=== PATIENT | male | born 1945 | race African-American/Black ===

== ENCOUNTER 2018-12-19 17:45 | Emergency (ER) | payer OTHER ==
[~2018-12-19] VITALS: Ht 182.9 cm; Wt 104.3 kg
[2018-12-19 19:45] LABS: BASOPHILS % 0.5 % (0.0-1.0); EOSINOPHILS # (AUTO) 0.1 (0.0-0.4); EOSINOPHILS % 1.6 % (0.0-6.0); HEMOGLOBIN 12.2 g/dL (14.0-18.0); LYMPHOCYTES # (AUTO) 1.5 (1.0-3.2); LYMPHOCYTES % 27.2 % (18.0-39.1); MEAN CORPUSCULAR HEMOGLOBIN 26.8 pg (28-32); MEAN CORPUSCULAR HGB CONC 32.1 g/dL (31-35); MEAN CORPUSCULAR VOLUME 83.3 fL (81-99); MONOCYTES # (AUTO) 0.6 (0.2-0.8); MONOCYTES % 10.8 % (4.4-11.3); NEUTROPHILS # (AUTO) 3.3 (2.1-6.9); NEUTROPHILS % 59.7 % (38.7-80.0); PLATELET COUNT 193 x10e3/uL (140-360); RED BLOOD COUNT 4.56 x10e6/uL (4.3-5.7); RED CELL DISTRIBUTION WIDTH 19.3 % (11.7-14.4)
[2018-12-19] MEDS ORDERED: FUROSEMIDE INJ 10 MG/ML 4 ML VIAL IV ONE (19:45)
[2018-12-19 19:56] LABS: ALANINE AMINOTRANSFERASE 19 IU/L (0-55); ALBUMIN 3.5 g/dL (3.5-5.0); ALKALINE PHOSPHATASE 61 IU/L (40-150); ANION GAP 12.1 mmol/L (8-16); BLOOD UREA NITROGEN 19 mg/dL (7-26); BUN/CREATININE RATIO 15 (6-25); CALCIUM 9.3 mg/dL (8.4-10.2); CARBON DIOXIDE 24 mmol/L (22-29); CHLORIDE 108 mmol/L (98-107); CREATINE KINASE 59 IU/L (30-200); CREATININE, SERUM 1.23 mg/dL (0.72-1.25); EST GLOMERULAR FILTRATION RATE > 60 ML/MIN (60-); GLUCOSE 108 mg/dL (74-118); POTASSIUM 4.1 mmol/L (3.5-5.1); SODIUM 140 mmol/L (136-145)
--- NOTE | 2018-12-19 20:12 | Diagnostic Imaging Report ---
EXAMINATION: CHEST SINGLE (PORTABLE) INDICATION: ^sob ^[id number] ^[id number] COMPARISON: None FINDINGS: AP view TUBES and LINES: None. LUNGS: Lungs are well inflated. Bilateral interstitial edema. No lobar consolidations. PLEURA: Small right pleural effusion. No pneumothorax. HEART AND MEDIASTINUM: Marked enlargement of the cardiac silhouette. BONES AND SOFT TISSUES: Intact median sternotomy wires. No acute osseous lesion. Soft tissues are unremarkable. UPPER ABDOMEN: No free air under the diaphragm. IMPRESSION: Bilateral interstitial edema with associated small right pleural effusion. Signed by: Dr. Zo Villavicencio M.D. on 12/19/2018 8:09 PM
[2018-12-19] MEDS ORDERED: LASIX40 MG PO (21:00)
--- NOTE | 2018-12-19 21:00 | NUR ---
PT AMBULATORY TO RESTROOM, STATES TO BE FEELING BETTER.
[2018-12-19 21:54] VITALS: BP 124/94
== END 2018-12-19 21:40 | disposition home or self-care (01) ==
LOC: ER 17:45
DX: R06.09 Other forms of dyspnea (principal); R60.9 Edema, unspecified
CPT/HCPCS: 36415; 71045; 80053; 82550; 82553; 83880; 84484; 85025; 93005; 99284; J1940

== ENCOUNTER 2022-11-17 17:06 | Inpatient (IN) | payer OTHER ==
[~2022-11-17] VITALS: Ht 182.9 cm; Wt 104.3 kg
[~2022-11-17 17:06] MED LIST: LASIX40 MG PO
[2022-11-17] MEDS ORDERED: SODIUM CHLORIDE 0.9% 1000ML 1,000 ML IV STA (17:31)
[2022-11-17 18:29] LABS: BASOPHILS % 0.6 % (0.0-1.0); EOSINOPHILS # (AUTO) 0.1 (0.0-0.4); EOSINOPHILS % 0.9 % (0.0-6.0); HEMATOCRIT 37.2 % (38.2-49.6); LYMPHOCYTES # (AUTO) 1.2 (1.0-3.2); LYMPHOCYTES % 22.2 % (18.0-39.1); MEAN CORPUSCULAR HEMOGLOBIN 27.8 pg (28-32); MEAN CORPUSCULAR HGB CONC 32.3 g/dL (31-35); MEAN CORPUSCULAR VOLUME 86.3 fL (81-99); MONOCYTES # (AUTO) 0.4 (0.2-0.8); MONOCYTES % 7.7 % (4.4-11.3); NEUTROPHILS # (AUTO) 3.7 (2.1-6.9); NEUTROPHILS % 68.4 % (38.7-80.0); PLATELET COUNT 174 x10e3/uL (140-360); RED BLOOD COUNT 4.31 x10e6/uL (4.3-5.7); RED CELL DISTRIBUTION WIDTH 16.8 % (11.7-14.4)
[2022-11-17 18:45] LABS: INR 1.05; PROTHROMBIN TIME 14.2 seconds (11.9-14.5)
[2022-11-17 18:46] LABS: PARTIAL THROMBOPLASTIN TIME 25.2 seconds (23.8-35.5)
[2022-11-17 18:55] LABS: ALANINE AMINOTRANSFERASE 9 IU/L (0-55); ALBUMIN 3.4 g/dL (3.5-5.0); ALKALINE PHOSPHATASE 88 IU/L (40-150); ANION GAP 15.6 mmol/L (8-16); BLOOD UREA NITROGEN 17 mg/dL (7-26); BUN/CREATININE RATIO 13 (6-25); CALCIUM 8.7 mg/dL (8.4-10.2); CARBON DIOXIDE 20 mmol/L (22-29); CHLORIDE 111 mmol/L (98-107); CREATINE KINASE 31 IU/L (30-200); CREATININE, SERUM 1.31 mg/dL (0.72-1.25); GLUCOSE 94 mg/dL (74-118); POTASSIUM 3.6 mmol/L (3.5-5.1); SODIUM 143 mmol/L (136-145)
[2022-11-17 18:56] LABS: LIPASE < 4 U/L (8-78)
[2022-11-17] MEDS ORDERED: ONDANSETRON HCL INJ 2MG/ML 2ML 2 MG/ML VIAL IV PRN (19:30)
[2022-11-17] MEDS ORDERED: Morphine 2mg Syringe 2 MG/ML SYR IV PRN (19:30)
[2022-11-17 20:55] VITALS: PULSE 64; RESP 20; O2SAT 97
[2022-11-17] MEDS: SODIUM CHLORIDE 0.9% 1000ML 1,000 ML IV SCH (22:52)
[2022-11-17 23:28] VITALS: PULSE 64; PULSE 76; RESP 18; O2SAT 98
[2022-11-17 23:41] VITALS: BP 126/82; PULSE 71; RESP 13; TEMP 97.9; O2SAT 99
[2022-11-18] VITALS (75 sets, daily range): BP systolic 102–164; BP diastolic 59–141; PULSE 35–85; RESP 10–25; TEMP 97.8–98.4; O2SAT 94–100
[2022-11-18 05:45] LABS: BASOPHILS % 0.5 % (0.0-1.0); EOSINOPHILS # (AUTO) 0.1 (0.0-0.4); EOSINOPHILS % 0.8 % (0.0-6.0); HEMATOCRIT 37.4 % (38.2-49.6); HEMOGLOBIN 11.8 g/dL (14.0-18.0); LYMPHOCYTES # (AUTO) 2.3 (1.0-3.2); LYMPHOCYTES % 38.8 % (18.0-39.1); MEAN CORPUSCULAR HEMOGLOBIN 27.8 pg (28-32); MEAN CORPUSCULAR HGB CONC 31.6 g/dL (31-35); MEAN CORPUSCULAR VOLUME 88.2 fL (81-99); MONOCYTES # (AUTO) 0.5 (0.2-0.8); MONOCYTES % 8.3 % (4.4-11.3); NEUTROPHILS % 51.4 % (38.7-80.0); PLATELET COUNT 162 x10e3/uL (140-360); RED BLOOD COUNT 4.24 x10e6/uL (4.3-5.7); RED CELL DISTRIBUTION WIDTH 17.1 % (11.7-14.4)
[2022-11-18 05:56] LABS: ANION GAP 15.9 mmol/L (8-16); CALCIUM 8.6 mg/dL (8.4-10.2); CREATININE, SERUM 1.19 mg/dL (0.72-1.25); POTASSIUM 4.9 mmol/L (3.5-5.1)
[2022-11-18] MEDS: SODIUM CHLORIDE 0.9% 1000ML 1,000 ML IV SCH ×2 (06:17→13:43)
[2022-11-18] MEDS ORDERED: ALBUTEROL/IPRATROPIUM 3 ML NEB NEB PRN ×2 (09:30→13:45)
[2022-11-18] MEDS ORDERED: ALBUTEROL/IPRATROPIUM 3 ML NEB NEB SCH (09:30)
[2022-11-18 10:27] LABS: MAGNESIUM 1.9 MG/DL (1.3-2.1)
[2022-11-18 10:48] LABS: THYROID STIMULATING HORMONE 1.18 uIU/mL (0.350-4.940)
[2022-11-18] MEDS ORDERED: TRAZODONE HCL50 MG PO (12:59)
[2022-11-18] MEDS ORDERED: COQ-10100 MG PO (12:59)
[2022-11-18] MEDS ORDERED: LISINOPRIL5 MG PO (12:59)
[2022-11-18] MEDS ORDERED: CLOPIDOGREL75 MG PO (12:59)
[2022-11-18] MEDS ORDERED: ASPIRIN81 MG PO (12:59)
[2022-11-18] MEDS: NICOTINE 21 MG/EA PATCH TOP SCH (14:49)
[2022-11-18] MEDS: ENOXAPARIN SOD INJ 40 MG/0.4 ML SYR SC SCH (16:40)
[2022-11-18] MEDS ORDERED: TRAZODONE HCL 50 MG TAB PO PRN (21:00)
[2022-11-19] VITALS (101 sets, daily range): BP systolic 58–171; BP diastolic 45–114; PULSE 43–109; RESP 12–35; TEMP 98.4–98.7; O2SAT 64–100
[2022-11-19] MEDS: SODIUM CHLORIDE 0.9% 1000ML 1,000 ML IV SCH ×2 (05:11→16:56)
[2022-11-19] MEDS: MUPIROCIN 2% OINT 22 GM TUBE TOP SCH ×2 (08:09→16:58)
[2022-11-19] MEDS: NICOTINE 21 MG/EA PATCH TOP SCH (08:09)
[2022-11-19] MEDS: ENOXAPARIN SOD INJ 40 MG/0.4 ML SYR SC SCH (16:59)
[2022-11-20] VITALS (38 sets, daily range): BP systolic 105–154; BP diastolic 61–104; PULSE 55–85; RESP 11–29; TEMP 97.7–98.1; O2SAT 97–100
[2022-11-20] MEDS: NICOTINE 21 MG/EA PATCH TOP SCH (10:43)
[2022-11-20] MEDS: MUPIROCIN 2% OINT 22 GM TUBE TOP SCH ×2 (10:43→16:53)
[2022-11-20] MEDS: SODIUM CHLORIDE 0.9% 1000ML 1,000 ML IV SCH ×2 (11:53→21:27)
[2022-11-20] MEDS: ENOXAPARIN SOD INJ 40 MG/0.4 ML SYR SC SCH (16:53)
[2022-11-21] VITALS (26 sets, daily range): BP systolic 113–157; BP diastolic 73–108; PULSE 49–90; RESP 12–25; TEMP 96.8–97.8; O2SAT 98–100
[2022-11-21 06:42] LABS: BASOPHILS % 0.7 % (0.0-1.0); EOSINOPHILS # (AUTO) 0.2 (0.0-0.4); EOSINOPHILS % 3.4 % (0.0-6.0); HEMOGLOBIN 11.9 g/dL (14.0-18.0); LYMPHOCYTES # (AUTO) 1.8 (1.0-3.2); LYMPHOCYTES % 39.3 % (18.0-39.1); MEAN CORPUSCULAR HGB CONC 33.1 g/dL (31-35); MEAN CORPUSCULAR VOLUME 84.7 fL (81-99); MONOCYTES # (AUTO) 0.5 (0.2-0.8); MONOCYTES % 10.8 % (4.4-11.3); NEUTROPHILS % 45.6 % (38.7-80.0); PLATELET COUNT 141 x10e3/uL (140-360); RED BLOOD COUNT 4.25 x10e6/uL (4.3-5.7); RED CELL DISTRIBUTION WIDTH 16.2 % (11.7-14.4)
[2022-11-21 07:04] LABS: ALBUMIN 2.8 g/dL (3.5-5.0); ALBUMIN/GLOBULIN RATIO 0.9 (0.8-2.0); ANION GAP 13.4 mmol/L (8-16); CREATININE, SERUM 0.82 mg/dL (0.72-1.25); POTASSIUM 3.4 mmol/L (3.5-5.1)
[2022-11-21] MEDS: NICOTINE 21 MG/EA PATCH TOP SCH (09:05)
[2022-11-21] MEDS: MUPIROCIN 2% OINT 22 GM TUBE TOP SCH ×2 (09:05→17:08)
[2022-11-21] MEDS ORDERED: POTASSIUM CHLORIDE 20 MEQ TAB CR PO ONE (10:45)
[2022-11-21] MEDS: SODIUM CHLORIDE 0.9% 1000ML 1,000 ML IV SCH (11:07)
[2022-11-21] MEDS: ENOXAPARIN SOD INJ 40 MG/0.4 ML SYR SC SCH (17:07)
[2022-11-22] VITALS (18 sets, daily range): BP systolic 119–153; BP diastolic 74–100; PULSE 26–108; RESP 16–27; TEMP 97.2–97.8; O2SAT 35–100
[2022-11-22] MEDS: MUPIROCIN 2% OINT 22 GM TUBE TOP SCH (09:00)
[2022-11-22] MEDS: NICOTINE 21 MG/EA PATCH TOP SCH (09:02)
== END 2022-11-22 15:53 | disposition hospice, home (50) | DRG 177 ==
LOC: ER 17:29 → ERHOLD 19:21 → ICU 23:39
PROVIDERS: ADMIT Internal Medicine; ATTEND Internal Medicine
PROC: 02HV33Z Insertion of Infusion Device into Superior Vena Cava, Percutaneous Approach (ICD-10-PCS; principal; 2022-11-18)
PROC: B548ZZA Ultrasonography of Superior Vena Cava, Guidance (ICD-10-PCS; 2022-11-18)
PROC: 02HV33Z Insertion of Infusion Device into Superior Vena Cava, Percutaneous Approach (ICD-10-PCS; 2022-11-20)
PROC: B548ZZA Ultrasonography of Superior Vena Cava, Guidance (ICD-10-PCS; 2022-11-20)
DX: U07.1 COVID-19 (principal); G93.41 Metabolic encephalopathy; I50.22 Chronic systolic (congestive) heart failure; I49.5 Sick sinus syndrome; R55 Syncope and collapse; R53.1 Weakness; R53.83 Other fatigue; I25.10 Atherosclerotic heart disease of native coronary artery without angina pectoris; J44.9 Chronic obstructive pulmonary disease, unspecified; E78.5 Hyperlipidemia, unspecified; I11.0 Hypertensive heart disease with heart failure; F03.90 Unspecified dementia, unspecified severity, without behavioral disturbance, psychotic disturbance, mood disturbance, and anxiety; I08.1 Rheumatic disorders of both mitral and tricuspid valves; I69.30 Unspecified sequelae of cerebral infarction; Z95.1 Presence of aortocoronary bypass graft
CPT/HCPCS: 0223U; 36415; 36569; 70450; 71045; 80048; 80053; 82550; 83690; 83735; 83880; 84443; 84484; 85025; 85610; 85730; 93005; 93306; 94799; 96360; 99284; J1650; J7030